=== PATIENT | female | born 1995 | race Caucasian/White ===

== ENCOUNTER 2017-02-02 16:05 | Emergency (ER) | payer MEDICAID ==
[~2017-02-02 16:05] MED LIST: ANTIVERT/2525 MG PO; BENTYL10 MG PO; DOXYCYCLINE HY100 M3 PO; DOXYCYCLINE100 M2 PO; FLONASE 0.05% 121 EA NAS; GYNE-LOTRIMIN 31 KIT VG; KENALOG0.1% TP; METHERGINE0.2 MG PO; MOTRIN 800 MG E4 TAB PO; MOTRIN800 MG PO; Meclizine25 MG PO; NKHM; PEN-VEE K500 MG PO; PENICILLIN VK500 MG PO; PERCOCET 325 MG1 TA7 PO; PHENERGAN25 M1 PO; PRENATAL1 TA2 PO; TOBREX 5 ML5 M1 OPH
[2017-02-02 16:47] LABS: BILIRUBIN 1+ (NEGATIVE); BLOOD TRACE-LYSED (NEGATIVE); CLARITY CLOUDY (CLEAR); COLOR YELLOW (YELLOW); GLUCOSE NEGATIVE (NEGATIVE); KETONE TRACE (NEGATIVE); LEUKO ESTERASE TRACE (NEGATIVE); NITRITE NEGATIVE (NEGATIVE); PH 6.5 (5.0-9.0); PROTEIN TRACE (NEGATIVE); SPECIFIC GRAVITY 1.025 (1.005-1.030)
[2017-02-02 16:59] LABS: BASO # 0.1 10*3/uL (0.0-0.1); BASO % 0.6 % (0.0-1.0); EOS # 0.1 10*3/uL (0.0-0.4); HEMATOCRIT 39.7 % (37.0-47.0); HEMOGLOBIN 13.6 g/dl (12.0-16.0); LYMPH # 2.1 10*3/uL (1.3-4.4); LYMPH % 23.7 % (27.0-41.0); MEAN CORPUSCULAR HGB 30.2 pg (27.0-31.0); MEAN CORPUSCULAR HGB CONC 34.3 g/dl (33.0-37.0); MEAN PLATELET VOLUME 9.9 fl (9.6-12.3); MONO # 0.8 10*3/uL (0.1-1.0); MONO % 8.5 % (3.0-9.0); NEUT # 5.9 10*3/uL (2.3-7.9); NEUT % 65.9 % (47.0-73.0); PLATELET COUNT AUTOMATED 298 10*3/uL (130-400); RED BLOOD COUNT 4.51 10*6/uL (4.10-5.10); RED CELL DISTRI WIDTH 12.1 % (0-14.5)
[2017-02-02 17:04] LABS: BACTERIA 1+; EPITHELIAL CELLS 16-20; MUCOUS 1+
[2017-02-02 17:05] LABS: URINE REFLEX COMMENT YES (NO)
[2017-02-02 17:14] LABS: ALBUMIN 4.3 gm/dl (3.1-4.5); ALKALINE PHOSPHATASE 83 U/L (45-117); BILIRUBIN, TOTAL 0.5 mg/dl (0.2-1.0); BUN 12 mg/dl (7-24); CARBON DIOXIDE 25 mmol/L (21-32); CHLORIDE 107 mmol/L (98-107); EST GLOM FILT AFRICAN AMERICAN > 60 ml/min; GLUCOSE 107 mg/dL (65-99); POTASSIUM 3.9 mmol/L (3.5-5.1); SGOT/AST 14 IU/L (3-35); SGPT/ALT 18 U/L (12-78); SODIUM 143 mmol/L (136-145); TOTAL PROTEIN 7.7 gm/dL (6.4-8.2)
[2017-02-02] MEDS ORDERED: AMINOPHYLLIN200 MG PO (17:29)
== END 2017-02-02 17:32 | disposition home or self-care (01) ==
LOC: ED 16:05
PROVIDERS: Physician Assistant
DX: N30.01 Acute cystitis with hematuria (principal); Z88.6 Allergy status to analgesic agent; Z88.8 Allergy status to other drugs, medicaments and biological substances

== ENCOUNTER 2017-02-22 12:47 | Emergency (ER) | payer MEDICAID ==
[~2017-02-22] VITALS: Wt 39.5 kg
[~2017-02-22 12:47] MED LIST changes: +AMINOPHYLLIN200 MG PO
[2017-02-22 13:09] LABS: BILIRUBIN NEGATIVE (NEGATIVE); BLOOD NEGATIVE (NEGATIVE); CLARITY SL CLOUDY (CLEAR); COLOR YELLOW (YELLOW); GLUCOSE NEGATIVE (NEGATIVE); KETONE NEGATIVE (NEGATIVE); LEUKO ESTERASE NEGATIVE (NEGATIVE); NITRITE NEGATIVE (NEGATIVE); PH 5.5 (5.0-9.0); PROTEIN NEGATIVE (NEGATIVE); SPECIFIC GRAVITY >= 1.030 (1.005-1.030)
[2017-02-22 13:19] LABS: BACTERIA TRACE; EPITHELIAL CELLS 31-40; MUCOUS TRACE; URINE REFLEX COMMENT NO (NO); WBC 0-2 wbc/hpf (0-5)
[2017-02-22] MEDS ORDERED: PYRIDIUM200 M1 PO (14:01)
== END 2017-02-22 14:10 | disposition home or self-care (01) ==
LOC: ED 12:47
PROVIDERS: Nurse Practitioner Family
DX: R30.0 Dysuria (principal); Z88.8 Allergy status to other drugs, medicaments and biological substances

== ENCOUNTER 2017-06-17 02:17 | Emergency (ER) | payer OTHER ==
[~2017-06-17] VITALS: Ht 144.7 cm; Wt 40.8 kg
[~2017-06-17 02:17] MED LIST changes: +PYRIDIUM200 M1 PO
[2017-06-17 02:52] LABS: BILIRUBIN NEGATIVE (NEGATIVE); BLOOD NEGATIVE (NEGATIVE); CLARITY CLEAR (CLEAR); COLOR YELLOW (YELLOW); GLUCOSE NEGATIVE (NEGATIVE); KETONE TRACE (NEGATIVE); LEUKO ESTERASE NEGATIVE (NEGATIVE); NITRITE NEGATIVE (NEGATIVE); PROTEIN NEGATIVE (NEGATIVE)
[2017-06-17 02:57] LABS: EPITHELIAL CELLS 25-30
[2017-06-17 02:58] LABS: BACTERIA TRACE; URINE REFLEX COMMENT NO (NO); WBC 0-2 wbc/hpf (0-5)
[2017-06-17 03:26] LABS: BASO % 0.3 % (0.0-1.0); EOS # 0.1 10*3/uL (0.0-0.4); EOS % 1.5 % (1.0-4.0); HEMATOCRIT 35.4 % (37.0-47.0); HEMOGLOBIN 12.2 g/dl (12.0-16.0); LYMPH % 26.6 % (27.0-41.0); MEAN CELL VOLUME 88.1 fl (81.0-99.0); MEAN CORPUSCULAR HGB 30.3 pg (27.0-31.0); MEAN CORPUSCULAR HGB CONC 34.5 g/dl (33.0-37.0); MEAN PLATELET VOLUME 9.9 fl (9.6-12.3); MONO # 0.7 10*3/uL (0.1-1.0); NEUT # 4.6 10*3/uL (2.3-7.9); NEUT % 62.2 % (47.0-73.0); PLATELET COUNT AUTOMATED 210 10*3/uL (130-400); RED BLOOD COUNT 4.02 10*6/uL (4.10-5.10); RED CELL DISTRI WIDTH 12.3 % (0-14.5); WHITE BLOOD COUNT 7.3 10*3/uL (4.8-10.8)
[2017-06-17 03:38] LABS: BUN 7 mg/dl (7-24); CARBON DIOXIDE 24 mmol/L (21-32); CHLORIDE 107 mmol/L (98-107); EST GLOM FILT AFRICAN AMERICAN > 60 ml/min; GLUCOSE 100 mg/dL (65-99); POTASSIUM 3.3 mmol/L (3.5-5.1); SODIUM 140 mmol/L (136-145)
== END 2017-06-17 04:40 | disposition home or self-care (01) ==
LOC: ED 02:17
PROVIDERS: Emergency Medicine
DX: E86.0 Dehydration (principal); R42 Dizziness and giddiness; R53.1 Weakness; F17.200 Nicotine dependence, unspecified, uncomplicated; Z88.8 Allergy status to other drugs, medicaments and biological substances

== ENCOUNTER 2017-07-27 09:36 | Emergency (ER) | payer OTHER ==
[~2017-07-27] VITALS: Wt 42.2 kg
[2017-07-27] MEDS ORDERED: PRENA1 CHEW TA1.4 MG PO (09:41)
[2017-07-27] MEDS ORDERED: AVPAK AZITHROM250 MG PO (11:00)
== END 2017-07-27 11:06 | disposition home or self-care (01) ==
LOC: ED 09:36
DX: O99.511 Diseases of the respiratory system complicating pregnancy, first trimester (principal); J06.9 Acute upper respiratory infection, unspecified; Z88.1 Allergy status to other antibiotic agents; Z79.899 Other long term (current) drug therapy; Z3A.11 11 weeks gestation of pregnancy

== ENCOUNTER 2017-08-23 15:02 | Emergency (ER) | payer OTHER ==
[~2017-08-23] VITALS: Ht 144.7 cm; Wt 43.1 kg
[~2017-08-23 15:02] MED LIST changes: +AVPAK AZITHROM250 MG PO; +PRENA1 CHEW TA1.4 MG PO
[2017-08-23 15:39] LABS: BILIRUBIN NEGATIVE (NEGATIVE); BLOOD NEGATIVE (NEGATIVE); CLARITY SL CLOUDY (CLEAR); COLOR YELLOW (YELLOW); GLUCOSE NEGATIVE (NEGATIVE); KETONE NEGATIVE (NEGATIVE); LEUKO ESTERASE NEGATIVE (NEGATIVE); NITRITE NEGATIVE (NEGATIVE); PH 8.5 (5.0-9.0); SPECIFIC GRAVITY 1.015 (1.005-1.030); UROBILINOGEN 0.2 E.U./dl (0.2-1.0)
[2017-08-23 15:48] LABS: BACTERIA 2+; EPITHELIAL CELLS 20-25
== END 2017-08-23 16:47 | disposition home or self-care (01) ==
LOC: ED 15:02
PROVIDERS: Nurse Practitioner Family
DX: O26.892 Other specified pregnancy related conditions, second trimester (principal); R10.9 Unspecified abdominal pain; Z88.8 Allergy status to other drugs, medicaments and biological substances; Z79.899 Other long term (current) drug therapy; Z3A.14 14 weeks gestation of pregnancy

== ENCOUNTER 2017-09-07 20:58 | Emergency (ER) | payer OTHER ==
[~2017-09-07] VITALS: Ht 144.7 cm; Wt 44.0 kg
--- NOTE | ~2017-09-07 | EKG ---
[place], [place] ELECTROCARDIOGRAM REPORT NAME: LOTTIE ELIAS UNIT #: [id number] ROOM: DOCTOR: TIFFANIE HERNANDEZ MD BIRTHDATE: [birth year] DOS: 09/07/2017 TIME: 2148 hours. INTERPRETATION: Normal sinus rhythm at 90 beats per minute. Borderline measurements for first-degree heart block. No previous tracing is available for comparison. TIFFANIE HERNANDEZ MD CM:EKGRPT:ELECTROCARDIOGRAM REPORT [id number] TIFFANIE HERNANDEZ MD
[2017-09-07 21:34] LABS: BASO % 0.2 % (0.0-1.0); EOS # 0.1 10*3/uL (0.0-0.4); HEMATOCRIT 35.1 % (37.0-47.0); HEMOGLOBIN 12.5 g/dl (12.0-16.0); LYMPH # 2.2 10*3/uL (1.3-4.4); MEAN CELL VOLUME 86.9 fl (81.0-99.0); MEAN CORPUSCULAR HGB 30.9 pg (27.0-31.0); MEAN CORPUSCULAR HGB CONC 35.6 g/dl (33.0-37.0); MONO % 7.7 % (3.0-9.0); NEUT # 9.3 10*3/uL (2.3-7.9); NEUT % 73.5 % (47.0-73.0); PLATELET COUNT AUTOMATED 254 10*3/uL (130-400); RED BLOOD COUNT 4.04 10*6/uL (4.10-5.10); RED CELL DISTRI WIDTH 12.8 % (0-14.5); WHITE BLOOD COUNT 12.7 10*3/uL (4.8-10.8)
[2017-09-07 21:36] LABS: BILIRUBIN NEGATIVE (NEGATIVE); BLOOD NEGATIVE (NEGATIVE); CLARITY CLEAR (CLEAR); COLOR YELLOW (YELLOW); GLUCOSE NEGATIVE (NEGATIVE); KETONE NEGATIVE (NEGATIVE); LEUKO ESTERASE NEGATIVE (NEGATIVE); NITRITE NEGATIVE (NEGATIVE); SPECIFIC GRAVITY <= 1.005 (1.005-1.030); UROBILINOGEN 0.2 E.U./dl (0.2-1.0)
[2017-09-07 21:45] LABS: BACTERIA TRACE
[2017-09-07 21:46] LABS: WBC 0-2 wbc/hpf (0-5)
[2017-09-07 22:22] LABS: ALBUMIN 3.3 gm/dl (3.1-4.5); ALKALINE PHOSPHATASE 52 U/L (45-117); BUN 8 mg/dl (7-24); CHLORIDE 104 mmol/L (98-107); POTASSIUM 3.8 mmol/L (3.5-5.1); SGOT/AST 15 IU/L (3-35); SGPT/ALT 15 U/L (12-78); SODIUM 138 mmol/L (136-145); TOTAL PROTEIN 7.5 gm/dL (6.4-8.2)
== END 2017-09-07 23:23 | disposition home or self-care (01) ==
LOC: ED 20:58
PROVIDERS: Student in an Organized Health Care Education/Training Program
DX: O26.892 Other specified pregnancy related conditions, second trimester (principal); Z3A.17 17 weeks gestation of pregnancy; R42 Dizziness and giddiness

== ENCOUNTER 2018-02-06 12:57 | Emergency (ER) | payer OTHER ==
[~2018-02-06] VITALS: Ht 144.7 cm; Wt 43.5 kg
[2018-02-06 13:28] LABS: BILIRUBIN NEGATIVE (NEGATIVE); BLOOD 3+ (NEGATIVE); CLARITY SL CLOUDY (CLEAR); COLOR YELLOW (YELLOW); GLUCOSE NEGATIVE (NEGATIVE); KETONE TRACE (NEGATIVE); LEUKO ESTERASE 1+ (NEGATIVE); NITRITE NEGATIVE (NEGATIVE); PH 6.5 (5.0-9.0); UROBILINOGEN 0.2 E.U./dl (0.2-1.0)
[2018-02-06 13:36] LABS: MUCOUS 1+; RBC TNTC rbc/hpf (0-2)
[2018-02-06 13:45] LABS: BASO % 0.5 % (0.0-1.0); EOS # 0.1 10*3/uL (0.0-0.4); EOS % 1.1 % (1.0-4.0); HEMATOCRIT 38.7 % (37.0-47.0); HEMOGLOBIN 12.8 g/dl (12.0-16.0); LYMPH # 1.7 10*3/uL (1.3-4.4); LYMPH % 21.5 % (27.0-41.0); MEAN CELL VOLUME 87.2 fl (81.0-99.0); MEAN CORPUSCULAR HGB 28.8 pg (27.0-31.0); MEAN CORPUSCULAR HGB CONC 33.1 g/dl (33.0-37.0); MEAN PLATELET VOLUME 9.3 fl (9.6-12.3); MONO # 0.7 10*3/uL (0.1-1.0); MONO % 8.6 % (3.0-9.0); NEUT # 5.4 10*3/uL (2.3-7.9); PLATELET COUNT AUTOMATED 370 10*3/uL (130-400); RED BLOOD COUNT 4.44 10*6/uL (4.10-5.10); RED CELL DISTRI WIDTH 14.3 % (0-14.5); WHITE BLOOD COUNT 7.9 10*3/uL (4.8-10.8)
[2018-02-06 13:59] LABS: ALBUMIN 3.3 gm/dl (3.1-4.5); ALKALINE PHOSPHATASE 102 U/L (45-117); BUN 9 mg/dl (7-24); CHLORIDE 106 mmol/L (98-107); CREATININE 0.63 mg/dL (0.55-1.02); POTASSIUM 3.7 mmol/L (3.5-5.1); SGOT/AST 15 IU/L (3-35); SGPT/ALT 13 U/L (12-78); SODIUM 141 mmol/L (136-145); TOTAL PROTEIN 7.3 gm/dL (6.4-8.2)
[2018-02-06] MEDS ORDERED: CEPHALEXIN500 M1 PO (14:01)
== END 2018-02-06 14:25 | disposition home or self-care (01) ==
LOC: ED 12:57
PROVIDERS: Nurse Practitioner Family
DX: N39.0 Urinary tract infection, site not specified (principal); Z79.899 Other long term (current) drug therapy; Z88.1 Allergy status to other antibiotic agents

== ENCOUNTER 2018-02-17 14:55 | Emergency (ER) | payer OTHER ==
[~2018-02-17 14:55] MED LIST changes: +CEPHALEXIN500 M1 PO
[2018-02-17 15:37] LABS: BASO % 0.5 % (0.0-1.0); EOS # 0.1 10*3/uL (0.0-0.4); EOS % 1.1 % (1.0-4.0); HEMATOCRIT 38.3 % (37.0-47.0); HEMOGLOBIN 12.6 g/dl (12.0-16.0); LYMPH # 1.7 10*3/uL (1.3-4.4); LYMPH % 25.4 % (27.0-41.0); MEAN CELL VOLUME 87.6 fl (81.0-99.0); MEAN CORPUSCULAR HGB 28.8 pg (27.0-31.0); MEAN CORPUSCULAR HGB CONC 32.9 g/dl (33.0-37.0); MEAN PLATELET VOLUME 10.2 fl (9.6-12.3); MONO # 0.4 10*3/uL (0.1-1.0); MONO % 6.8 % (3.0-9.0); NEUT # 4.3 10*3/uL (2.3-7.9); NEUT % 65.9 % (47.0-73.0); PLATELET COUNT AUTOMATED 249 10*3/uL (130-400); RED BLOOD COUNT 4.37 10*6/uL (4.10-5.10); RED CELL DISTRI WIDTH 13.9 % (0-14.5); WHITE BLOOD COUNT 6.5 10*3/uL (4.8-10.8)
[2018-02-17 15:51] LABS: INTERNATIONAL NORM RATIO 0.9 (2.0-3.5)
[2018-02-17 15:54] LABS: ALBUMIN 3.6 gm/dl (3.1-4.5); ALKALINE PHOSPHATASE 70 U/L (45-117); BUN 14 mg/dl (7-24); CHLORIDE 109 mmol/L (98-107); CREATININE 0.54 mg/dL (0.55-1.02); POTASSIUM 3.6 mmol/L (3.5-5.1); SGOT/AST 20 IU/L (3-35); SGPT/ALT 20 U/L (12-78); SODIUM 143 mmol/L (136-145)
[2018-02-17] MEDS ORDERED: PRENATAL ONE D1 EACH PO (16:39)
== END 2018-02-17 16:43 | disposition home or self-care (01) ==
LOC: ED 14:55
PROVIDERS: Physician Assistant
DX: R42 Dizziness and giddiness (principal); Z79.899 Other long term (current) drug therapy; Z88.1 Allergy status to other antibiotic agents

== ENCOUNTER 2018-03-04 16:15 | Emergency (ER) | payer OTHER ==
[~2018-03-04] VITALS: Wt 45.4 kg
[~2018-03-04 16:15] MED LIST changes: +PRENATAL ONE D1 EACH PO
[2018-03-04] MEDS ORDERED: AMOXICILLIN500 M2 PO (16:23)
[2018-03-04] MEDS ORDERED: ZOFRAN4 MG PO (16:23)
== END 2018-03-04 16:35 | disposition home or self-care (01) ==
LOC: ED 16:15
DX: K02.9 Dental caries, unspecified (principal); F17.200 Nicotine dependence, unspecified, uncomplicated; Z88.8 Allergy status to other drugs, medicaments and biological substances; Z79.899 Other long term (current) drug therapy

== ENCOUNTER 2018-04-15 05:26 | Emergency (ER) | payer OTHER ==
[~2018-04-15] VITALS: Ht 144.7 cm; Wt 43.1 kg
[~2018-04-15 05:26] MED LIST changes: +AMOXICILLIN500 M2 PO; +ZOFRAN4 MG PO
== END 2018-04-15 06:51 | disposition home or self-care (01) ==
LOC: ED 05:26
DX: J02.9 Acute pharyngitis, unspecified (principal); F41.9 Anxiety disorder, unspecified; Z88.1 Allergy status to other antibiotic agents; Z79.899 Other long term (current) drug therapy

== ENCOUNTER 2018-06-08 07:16 | Emergency (ER) | payer OTHER ==
[~2018-06-08] VITALS: Ht 144.7 cm; Wt 44.5 kg
[2018-06-08] MEDS ORDERED: AMOXICILLIN500 M2 PO (07:31)
[2018-06-08] MEDS ORDERED: Motrin,Rufen800 MG PO (07:31)
== END 2018-06-08 07:46 | disposition home or self-care (01) ==
LOC: ED 07:16
DX: K04.7 Periapical abscess without sinus (principal); Z79.899 Other long term (current) drug therapy; Z88.1 Allergy status to other antibiotic agents; Z88.6 Allergy status to analgesic agent; Z88.8 Allergy status to other drugs, medicaments and biological substances

== ENCOUNTER 2018-06-20 05:14 | Emergency (ER) | payer OTHER ==
[~2018-06-20] VITALS: Ht 144.7 cm; Wt 42.2 kg
--- NOTE | ~2018-06-20 | EKG ---
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
[~2018-06-20 05:14] MED LIST changes: +Motrin,Rufen800 MG PO
[2018-06-20 05:48] LABS: BASO % 0.4 % (0.0-1.0); EOS # 0.2 10*3/uL (0.0-0.4); EOS % 2.3 % (1.0-4.0); HEMATOCRIT 37.4 % (37.0-47.0); HEMOGLOBIN 12.6 g/dl (12.0-16.0); LYMPH # 2.4 10*3/uL (1.3-4.4); MEAN CELL VOLUME 87.6 fl (81.0-99.0); MEAN CORPUSCULAR HGB 29.5 pg (27.0-31.0); MEAN CORPUSCULAR HGB CONC 33.7 g/dl (33.0-37.0); MEAN PLATELET VOLUME 9.7 fl (9.6-12.3); MONO # 0.7 10*3/uL (0.1-1.0); MONO % 9.7 % (3.0-9.0); NEUT # 3.9 10*3/uL (2.3-7.9); NEUT % 53.6 % (47.0-73.0); PLATELET COUNT AUTOMATED 275 10*3/uL (130-400); RED BLOOD COUNT 4.27 10*6/uL (4.10-5.10); RED CELL DISTRI WIDTH 12.2 % (0-14.5); WHITE BLOOD COUNT 7.3 10*3/uL (4.8-10.8)
[2018-06-20 05:51] LABS: ALBUMIN 4.2 gm/dl (3.1-4.5); ALKALINE PHOSPHATASE 80 U/L (45-117); BUN 16 mg/dl (7-24); CHLORIDE 106 mmol/L (98-107); POTASSIUM 3.6 mmol/L (3.5-5.1); SGOT/AST 15 IU/L (3-35); SGPT/ALT 18 U/L (12-78); SODIUM 141 mmol/L (136-145); TOTAL PROTEIN 7.7 gm/dL (6.4-8.2)
[2018-06-20 05:55] LABS: BETA-HCG, QUANT < 1.0 mIU/mL (1-3); TROPONIN I < 0.015 ng/ml (<0.045)
== END 2018-06-20 06:36 | disposition home or self-care (01) ==
LOC: ED 05:14
PROVIDERS: Student in an Organized Health Care Education/Training Program
DX: F41.9 Anxiety disorder, unspecified (principal); R00.2 Palpitations; R20.0 Anesthesia of skin; Z88.8 Allergy status to other drugs, medicaments and biological substances; Z79.899 Other long term (current) drug therapy

== ENCOUNTER 2018-07-24 20:21 | Emergency (ER) | payer OTHER ==
[~2018-07-24] VITALS: Ht 144.7 cm; Wt 43.1 kg
[2018-07-24 20:55] LABS: BILIRUBIN NEGATIVE (NEGATIVE); BLOOD NEGATIVE (NEGATIVE); CLARITY CLEAR (CLEAR); COLOR YELLOW (YELLOW); GLUCOSE NEGATIVE (NEGATIVE); KETONE NEGATIVE (NEGATIVE); LEUKO ESTERASE NEGATIVE (NEGATIVE); NITRITE NEGATIVE (NEGATIVE); UROBILINOGEN 0.2 E.U./dl (0.2-1.0)
[2018-07-24 21:06] LABS: BACTERIA TRACE; EPITHELIAL CELLS 35-40; RBC 0-2 rbc/hpf (0-2); WBC 0-2 wbc/hpf (0-5)
== END 2018-07-24 21:45 | disposition home or self-care (01) ==
LOC: ED 20:21
PROVIDERS: Emergency Medicine
DX: B34.9 Viral infection, unspecified (principal); R10.30 Lower abdominal pain, unspecified; M54.5 Low back pain; Z88.8 Allergy status to other drugs, medicaments and biological substances

== ENCOUNTER 2018-08-06 05:10 | Emergency (ER) | payer OTHER ==
[~2018-08-06] VITALS: Ht 144.7 cm; Wt 43.1 kg
[2018-08-06] MEDS ORDERED: PENICILLIN-VK500 MG PO (05:36)
[2018-08-06] MEDS ORDERED: Motrin,Rufen800 MG PO (06:00)
== END 2018-08-06 05:47 | disposition home or self-care (01) ==
LOC: ED 05:10
DX: K02.9 Dental caries, unspecified (principal); K04.01 Reversible pulpitis; Z88.8 Allergy status to other drugs, medicaments and biological substances; Z79.899 Other long term (current) drug therapy

== ENCOUNTER 2018-09-19 04:05 | Emergency (ER) | payer OTHER ==
[~2018-09-19] VITALS: Ht 144.7 cm; Wt 42.2 kg
[~2018-09-19 04:05] MED LIST changes: +PENICILLIN-VK500 MG PO
[2018-09-19] MEDS ORDERED: AMOXICILLIN500 M2 PO (04:41)
[2018-09-19] MEDS ORDERED: Motrin,Rufen800 MG PO (04:41)
== END 2018-09-19 05:27 | disposition home or self-care (01) ==
LOC: ED 04:05
DX: H66.93 Otitis media, unspecified, bilateral (principal); J01.90 Acute sinusitis, unspecified; Z88.8 Allergy status to other drugs, medicaments and biological substances

== ENCOUNTER 2018-10-24 02:31 | Emergency (ER) | payer SELFPAY ==
[~2018-10-24] VITALS: Ht 144.7 cm; Wt 42.2 kg
[2018-10-24] MEDS ORDERED: GYNE-LOTRIMIN-745 GM V (03:38)
[2018-10-24] MEDS ORDERED: KEFLEX500 M1 PO (03:38)
[2018-10-28 03:04] LABS: GONOCOCCUS BY NAA Negative (Negative)
== END 2018-10-24 04:12 | disposition home or self-care (01) ==
LOC: ED 02:31
PROVIDERS: Emergency Medicine Emergency Medical Services
DX: J02.9 Acute pharyngitis, unspecified (principal); H61.21 Impacted cerumen, right ear; N76.0 Acute vaginitis; R09.81 Nasal congestion; H92.02 Otalgia, left ear; H93.13 Tinnitus, bilateral; F41.9 Anxiety disorder, unspecified; Z88.8 Allergy status to other drugs, medicaments and biological substances; Z87.440 Personal history of urinary (tract) infections

== ENCOUNTER 2018-11-10 10:51 | Emergency (ER) | payer MEDICAID ==
[~2018-11-10] VITALS: Ht 144.7 cm; Wt 42.6 kg
[~2018-11-10 10:51] MED LIST changes: +GYNE-LOTRIMIN-745 GM V; +KEFLEX500 M1 PO
[2018-11-10 11:26] LABS: BILIRUBIN NEGATIVE (NEGATIVE); BLOOD TRACE-INTACT (NEGATIVE); CLARITY SL CLOUDY (CLEAR); COLOR YELLOW (YELLOW); GLUCOSE NEGATIVE (NEGATIVE); KETONE NEGATIVE (NEGATIVE); LEUKO ESTERASE 1+ (NEGATIVE); NITRITE NEGATIVE (NEGATIVE); SPECIFIC GRAVITY >= 1.030 (1.005-1.030); UROBILINOGEN 0.2 E.U./dl (0.2-1.0)
[2018-11-10 11:37] LABS: WBC 21-30 wbc/hpf (0-5)
[2018-11-10 11:38] LABS: BACTERIA 2+
[2018-11-10] MEDS ORDERED: FLONASE ALLERG9.9 ML NAS (12:03)
[2018-11-10] MEDS ORDERED: ZYRTEC10 MG PO (12:03)
[2018-11-10] MEDS ORDERED: CEFUROXIME AXE500 MG PO (12:03)
== END 2018-11-10 11:44 | disposition home or self-care (01) ==
LOC: ED 10:51
PROVIDERS: Nurse Practitioner Family
DX: N39.0 Urinary tract infection, site not specified (principal); J01.90 Acute sinusitis, unspecified; Z88.8 Allergy status to other drugs, medicaments and biological substances

== ENCOUNTER 2018-11-12 08:25 | Emergency (ER) | payer OTHER ==
[~2018-11-12] VITALS: Ht 144.7 cm; Wt 42.2 kg
[~2018-11-12 08:25] MED LIST changes: +CEFUROXIME AXE500 MG PO; +FLONASE ALLERG9.9 ML NAS; +ZYRTEC10 MG PO
== END 2018-11-12 11:33 | disposition home or self-care (01) ==
LOC: ED 08:25
DX: J32.9 Chronic sinusitis, unspecified (principal); N76.0 Acute vaginitis; Z88.8 Allergy status to other drugs, medicaments and biological substances; Z79.2 Long term (current) use of antibiotics; Z79.899 Other long term (current) drug therapy

== ENCOUNTER 2018-11-25 17:56 | Emergency (ER) | payer OTHER ==
[~2018-11-25] VITALS: Ht 144.7 cm; Wt 43.5 kg
--- NOTE | ~2018-11-25 | EKG ---
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
[~2018-11-25 17:56] MED LIST changes: -AUGMENTIN 875875 MG PO; -CLEOCIN HCL300 MG PO; -IBU800 M1 PO
[2018-11-25 18:17] LABS: BASO % 0.3 % (0.0-1.0); EOS # 0.1 10*3/uL (0.0-0.4); EOS % 0.7 % (1.0-4.0); HEMATOCRIT 40.8 % (37.0-47.0); HEMOGLOBIN 14.2 g/dl (12.0-16.0); LYMPH % 18.8 % (27.0-41.0); MEAN CELL VOLUME 87.7 fl (81.0-99.0); MEAN CORPUSCULAR HGB 30.5 pg (27.0-31.0); MEAN CORPUSCULAR HGB CONC 34.8 g/dl (33.0-37.0); MONO # 0.8 10*3/uL (0.1-1.0); MONO % 7.3 % (3.0-9.0); NEUT # 7.8 10*3/uL (2.3-7.9); NEUT % 72.5 % (47.0-73.0); PLATELET COUNT AUTOMATED 279 10*3/uL (130-400); RED BLOOD COUNT 4.65 10*6/uL (4.10-5.10); RED CELL DISTRI WIDTH 12.2 % (0-14.5); WHITE BLOOD COUNT 10.7 10*3/uL (4.8-10.8)
[2018-11-25 18:27] LABS: INTERNATIONAL NORM RATIO 0.9 (2.0-3.5)
[2018-11-25 18:34] LABS: ALBUMIN 4.4 gm/dl (3.1-4.5); ALKALINE PHOSPHATASE 59 U/L (45-117); BUN 11 mg/dl (7-24); CHLORIDE 107 mmol/L (98-107); CREATININE 0.65 mg/dL (0.55-1.02); LIPASE 161 U/L (73-393); POTASSIUM 3.8 mmol/L (3.5-5.1); SGOT/AST 13 IU/L (3-35); SGPT/ALT 19 U/L (12-78); SODIUM 139 mmol/L (136-145); TOTAL PROTEIN 7.9 gm/dL (6.4-8.2)
[2018-11-25 18:43] LABS: TROPONIN I < 0.015 ng/ml (<0.045)
== END 2018-11-25 20:00 | disposition home or self-care (01) ==
LOC: ED 17:56
PROVIDERS: Nurse Practitioner Family
DX: R94.31 Abnormal electrocardiogram [ECG] [EKG] (principal); Z88.8 Allergy status to other drugs, medicaments and biological substances

== ENCOUNTER → 2018-11-25 | Outpatient (CLI) | payer OTHER ==
[~2018-11-25] MED LIST changes: +AUGMENTIN 875875 MG PO; +CLEOCIN HCL300 MG PO; +IBU800 M1 PO
--- NOTE | ~2018-11-25 | HM ---
[place], [place] HOLTER MONITOR REPORT NAME: LOTTIE LYON UNIT #: [id number] ROOM: DOCTOR: ROXANA DIXON MD BIRTHDATE: [birth year] DOS: 11/25/2018 INDICATION FOR MONITORING: Palpitations. DURATION OF MONITORIN hours. IMPRESSION: Baseline rhythm, normal sinus rhythm. Average heart rate was 91 beats per minute. Minimum heart rate was 53 beats per minute, occurring at 11:00 a.m. The maximum heart rate was 167 beats per minute, occurring at 4:33 p.m. No ventricular ectopy including VT/VF was noted. There were 28 supraventricular ectopic beats. Atrial fibrillation burden was 0%. No significant pauses were noted. No diary was submitted with this report. Roxana Dixon MD CM:HOLTER:HOLTER MONITOR REPORT [id number] ROXANA DIXON MD
--- NOTE | ~2018-11-25 | EKG ---
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
== END | disposition home or self-care (01) ==
LOC: CARD 10:30
DX: I21.9 Acute myocardial infarction, unspecified (principal); I51.7 Cardiomegaly

== ENCOUNTER 2018-12-01 00:02 | Emergency (ER) | payer OTHER ==
[~2018-12-01] VITALS: Ht 144.7 cm; Wt 43.1 kg
[2018-12-01] MEDS ORDERED: IBU800 M1 PO (00:16)
[2018-12-01] MEDS ORDERED: PENICILLIN VK500 MG PO (00:16)
[2018-12-01] MEDS ORDERED: AUGMENTIN 875875 MG PO (00:56)
== END 2018-12-01 01:21 | disposition home or self-care (01) ==
LOC: ED 00:02
DX: K04.7 Periapical abscess without sinus (principal); K02.9 Dental caries, unspecified

== ENCOUNTER 2018-12-02 01:26 | Inpatient (IN) | payer OTHER ==
[~2018-12-02] VITALS: Ht 144.8 cm; Wt 43.1 kg
[2018-12-02] VITALS (7 sets, daily range): BP systolic 104–134; BP diastolic 59–96
--- NOTE | ~2018-12-02 | O ---
[place], [place] OPERATIVE NOTE NAME: LOTTIE LYON UNIT #: [id number] ROOM: [facility] DOCTOR: VANDA HARE DMD BIRTHDATE: [birth year] DOS: PREOPERATIVE DIAGNOSES: Facial cellulitis and anxiety. POSTOPERATIVE DIAGNOSES: Facial cellulitis and anxiety. ANESTHESIA: General anesthesia with endotracheal intubation. FLUIDS: Minimal. ESTIMATED BLOOD LOSS: Minimal. COMPLICATIONS: None. CONDITION: To PACU, stable. DESCRIPTION OF PROCEDURE: The patient was brought to the OR and placed in supine position. IV and EKG lines were placed. Endotracheal intubation and general anesthesia was administered. The patient was prepped and draped for oral procedures. Risks and benefits were explained to the patient prior to surgery. Clinical exam and x-rays taken determined nonrestorable tooth #14 with associated buccal space abscess and erosion into the maxillary sinus. PROCEDURES PERFORMED: Complete extraction tooth #14, radicular cyst removal. Incision and drainage in the buccal space. Gelfoam placed, sutured with 4-0 Vicryl. Lavaged x 2. Throat pack removed. The patient left the OR in good condition and went to the PACU. VANDA HARE DMD CM:OPRECORD:OPERATIVE NOTE [id number] VANDA HARE DMD 12/04/18 0854 interface
--- NOTE | ~2018-12-02 | CON ---
[place], [place] REPORT OF CONSULTATION NAME: LOTTIE LYON UNIT #: [id number] ROOM: 505 DOCTOR: VANDA HARE DMD BIRTHDATE: [birth year] DOS: 12/02/2018 HISTORY OF PRESENT ILLNESS: The patient is admitted for a left-sided facial swelling of 1 week duration. On exam, the patient has moderate left-sided mid facial swelling. Denies any dysphagia or dyspnea. Intraoral exam, the patient has tenderness on opening and slightly minimized maximum opening. Teeth in moderate oral condition, multiple teeth carious to the gumline. Tooth #14 carious to the gumline with associated buccal space swelling. Minimal purulence noted. Tenderness from tooth #11 extending distally to tooth #16. Discussed treatment options with the patient including general anesthesia with extraction of offending teeth and incision and drainage or continued antibiotic therapy and extraction of offending teeth once discharged. The patient is to consider her options and make a decision. VANDA HARE DMD CM:CONSTR:REPORT OF CONSULTATION 1234 12/03/18 0034 interface
[~2018-12-02 01:26] MED LIST changes: +AUGMENTIN 875875 MG PO; +IBU800 M1 PO
[2018-12-02 02:45] LABS: BASO % 0.3 % (0.0-1.0); BILIRUBIN NEGATIVE (NEGATIVE); BLOOD NEGATIVE (NEGATIVE); CLARITY CLEAR (CLEAR); COLOR YELLOW (YELLOW); EOS # 0.1 10*3/uL (0.0-0.4); EOS % 0.6 % (1.0-4.0); GLUCOSE NEGATIVE (NEGATIVE); HEMOGLOBIN 12.6 g/dl (12.0-16.0); KETONE 2+ (NEGATIVE); LEUKO ESTERASE NEGATIVE (NEGATIVE); LYMPH # 1.9 10*3/uL (1.3-4.4); LYMPH % 13.9 % (27.0-41.0); MEAN CELL VOLUME 88.7 fl (81.0-99.0); MEAN CORPUSCULAR HGB 30.2 pg (27.0-31.0); MEAN CORPUSCULAR HGB CONC 34.1 g/dl (33.0-37.0); MEAN PLATELET VOLUME 10.3 fl (9.6-12.3); MONO # 1.3 10*3/uL (0.1-1.0); MONO % 9.5 % (3.0-9.0); NEUT # 10.4 10*3/uL (2.3-7.9); NEUT % 75.3 % (47.0-73.0); NITRITE NEGATIVE (NEGATIVE); PLATELET COUNT AUTOMATED 296 10*3/uL (130-400); RED BLOOD COUNT 4.17 10*6/uL (4.10-5.10); RED CELL DISTRI WIDTH 12.2 % (0-14.5); UROBILINOGEN 0.2 E.U./dl (0.2-1.0); WHITE BLOOD COUNT 13.9 10*3/uL (4.8-10.8)
[2018-12-02 02:55] LABS: URINE AMPHETAMINES < 1000 (1000ng/ml); URINE BARBITURATES < 200 (200ng/ml); URINE BENZODIAZEPINES < 200 (200ng/ml); URINE CANNABINOIDS (THC) < 50 (50ng/ml); URINE COCAINE < 300 (300ng/ml); URINE METHADONE < 300 (300ng/ml); URINE OPIATES < 300 (300ng/ml)
[2018-12-02 02:56] LABS: URINE PHENCYCLIDINE < 25 (25ng/ml)
[2018-12-02 03:00] LABS: ALBUMIN 4.1 gm/dl (3.1-4.5); ALKALINE PHOSPHATASE 65 U/L (45-117); BUN 8 mg/dl (7-24); CHLORIDE 108 mmol/L (98-107); CREATININE 0.59 mg/dL (0.55-1.02); POTASSIUM 3.3 mmol/L (3.5-5.1); SGOT/AST 24 IU/L (3-35); SGPT/ALT 27 U/L (12-78); SODIUM 140 mmol/L (136-145); TOTAL PROTEIN 7.9 gm/dL (6.4-8.2)
[2018-12-02 03:02] LABS: WBC 0-2 wbc/hpf (0-5)
[2018-12-03] VITALS (9 sets, daily range): BP systolic 98–115; BP diastolic 52–77
[2018-12-03 06:27] LABS: BASO % 0.3 % (0.0-1.0); EOS # 0.1 10*3/uL (0.0-0.4); EOS % 1.2 % (1.0-4.0); HEMOGLOBIN 11.2 g/dl (12.0-16.0); LYMPH # 1.6 10*3/uL (1.3-4.4); LYMPH % 16.8 % (27.0-41.0); MEAN CELL VOLUME 90.7 fl (81.0-99.0); MEAN CORPUSCULAR HGB 30.8 pg (27.0-31.0); MEAN CORPUSCULAR HGB CONC 33.9 g/dl (33.0-37.0); MEAN PLATELET VOLUME 10.5 fl (9.6-12.3); NEUT # 6.9 10*3/uL (2.3-7.9); NEUT % 71.3 % (47.0-73.0); PLATELET COUNT AUTOMATED 246 10*3/uL (130-400); RED BLOOD COUNT 3.64 10*6/uL (4.10-5.10); RED CELL DISTRI WIDTH 12.2 % (0-14.5); WHITE BLOOD COUNT 9.7 10*3/uL (4.8-10.8)
[2018-12-03 06:40] LABS: BUN 6 mg/dl (7-24); CHLORIDE 111 mmol/L (98-107); CHOLESTEROL 83 mg/dL (<200); CREATININE 0.54 mg/dL (0.55-1.02); HDL CHOLESTEROL 45 mg/dl (40-60); LDL CHOLESTEROL 31 mg/dL (9-159); PHOSPHOROUS 3.6 mg/dL (2.5-4.9); POTASSIUM 3.6 mmol/L (3.5-5.1); SODIUM 143 mmol/L (136-145); TRIGLYCERIDES 36 mg/dl (<150); VLDL CHOLESTEROL 7 mg/dL (6-40)
[2018-12-03] MEDS ORDERED: CLEOCIN HCL300 MG PO (12:28)
== END 2018-12-03 17:05 | disposition home or self-care (01) | DRG 854 ==
LOC: ED 01:26 → 5E 06:25 → EDHOLD 06:25 → 5E 06:25 → EDHOLD 07:18 → 5E 08:04
PROVIDERS: Emergency Medicine; Student in an Organized Health Care Education/Training Program; ADMIT Internal Medicine
PROC: 0CDWXZ0 Extraction of Upper Tooth, Single, External Approach (ICD-10-PCS; principal; 2018-12-02)
PROC: 0C94XZZ Drainage of Buccal Mucosa, External Approach (ICD-10-PCS; 2018-12-02)
PROC: 0CB4XZZ Excision of Buccal Mucosa, External Approach (ICD-10-PCS; 2018-12-02)
DX: A41.9 Sepsis, unspecified organism (principal); L03.211 Cellulitis of face; L02.01 Cutaneous abscess of face; K04.7 Periapical abscess without sinus; F41.9 Anxiety disorder, unspecified; E87.6 Hypokalemia; Z88.1 Allergy status to other antibiotic agents; E87.8 Other disorders of electrolyte and fluid balance, not elsewhere classified

== ENCOUNTER 2019-05-15 15:46 | Emergency (ER) | payer OTHER ==
[~2019-05-15] VITALS: Ht 144.7 cm; Wt 44.5 kg
[~2019-05-15 15:46] MED LIST changes: +CLEOCIN HCL300 MG PO
[2019-05-15 16:31] LABS: BILIRUBIN NEGATIVE (NEGATIVE); BLOOD NEGATIVE (NEGATIVE); CLARITY SL CLOUDY (CLEAR); COLOR YELLOW (YELLOW); GLUCOSE NEGATIVE (NEGATIVE); KETONE NEGATIVE (NEGATIVE); LEUKO ESTERASE NEGATIVE (NEGATIVE); NITRITE NEGATIVE (NEGATIVE); SPECIFIC GRAVITY 1.025 (1.005-1.030)
[2019-05-15 16:39] LABS: BACTERIA 1+; EPITHELIAL CELLS 21-30; MUCOUS 2+
[2019-05-15] MEDS ORDERED: CEPHALEXIN500 M1 PO (16:54)
== END 2019-05-15 17:03 | disposition home or self-care (01) ==
LOC: ED 15:46
PROVIDERS: Nurse Practitioner Family
DX: O26.891 Other specified pregnancy related conditions, first trimester (principal); R30.0 Dysuria; R30.9 Painful micturition, unspecified; Z3A.01 Less than 8 weeks gestation of pregnancy; Z88.8 Allergy status to other drugs, medicaments and biological substances; Z87.440 Personal history of urinary (tract) infections

== ENCOUNTER 2019-08-06 10:06 | Emergency (ER) | payer OTHER ==
[~2019-08-06] VITALS: Ht 144.7 cm; Wt 47.6 kg
[2019-08-06 11:02] LABS: BILIRUBIN NEGATIVE (NEGATIVE); BLOOD TRACE-INTACT (NEGATIVE); CLARITY SL CLOUDY (CLEAR); COLOR YELLOW (YELLOW); GLUCOSE NEGATIVE (NEGATIVE); KETONE NEGATIVE (NEGATIVE); LEUKO ESTERASE NEGATIVE (NEGATIVE); NITRITE NEGATIVE (NEGATIVE); UROBILINOGEN 0.2 E.U./dl (0.2-1.0)
[2019-08-06 11:15] LABS: MUCOUS TRACE; RBC 0-2 rbc/hpf (0-2)
== END 2019-08-06 11:41 | disposition home or self-care (01) ==
LOC: ED 10:06
PROVIDERS: Nurse Practitioner Family
DX: O46.92 Antepartum hemorrhage, unspecified, second trimester (principal); Z3A.17 17 weeks gestation of pregnancy; Z88.8 Allergy status to other drugs, medicaments and biological substances

== ENCOUNTER 2019-08-08 01:02 | Emergency (ER) | payer OTHER ==
[~2019-08-08] VITALS: Ht 144.7 cm; Wt 47.6 kg
[2019-08-08 02:09] LABS: BASO # 0.1 10*3/uL (0.0-0.1); BASO % 0.4 % (0.0-1.0); EOS # 0.1 10*3/uL (0.0-0.4); EOS % 0.8 % (1.0-4.0); HEMATOCRIT 37.2 % (37.0-47.0); HEMOGLOBIN 12.9 g/dl (12.0-16.0); LYMPH # 2.1 10*3/uL (1.3-4.4); LYMPH % 15.8 % (27.0-41.0); MEAN CELL VOLUME 90.7 fl (81.0-99.0); MEAN CORPUSCULAR HGB 31.5 pg (27.0-31.0); MEAN CORPUSCULAR HGB CONC 34.7 g/dl (33.0-37.0); MEAN PLATELET VOLUME 9.8 fl (9.6-12.3); MONO % 7.3 % (3.0-9.0); NEUT # 9.9 10*3/uL (2.3-7.9); NEUT % 74.9 % (47.0-73.0); PLATELET COUNT AUTOMATED 234 10*3/uL (130-400); RED CELL DISTRI WIDTH 12.9 % (0-14.5); WHITE BLOOD COUNT 13.2 10*3/uL (4.8-10.8)
[2019-08-08 02:22] LABS: BILIRUBIN NEGATIVE (NEGATIVE); BLOOD 3+ (NEGATIVE); CLARITY CLEAR (CLEAR); COLOR YELLOW (YELLOW); GLUCOSE NEGATIVE (NEGATIVE); KETONE TRACE (NEGATIVE); LEUKO ESTERASE NEGATIVE (NEGATIVE); NITRITE NEGATIVE (NEGATIVE); SPECIFIC GRAVITY 1.015 (1.005-1.030); UROBILINOGEN 0.2 E.U./dl (0.2-1.0)
[2019-08-08 02:29] LABS: BACTERIA 1+; RBC 16-20 rbc/hpf (0-2); WBC 0-2 wbc/hpf (0-5)
== END 2019-08-08 04:40 | disposition home or self-care (01) ==
LOC: ED 01:02
PROVIDERS: Emergency Medicine
DX: O46.92 Antepartum hemorrhage, unspecified, second trimester (principal); Z3A.17 17 weeks gestation of pregnancy; Z88.8 Allergy status to other drugs, medicaments and biological substances

== ENCOUNTER 2020-07-22 23:14 | Emergency (ER) | payer OTHER ==
[~2020-07-22] VITALS: Ht 144.7 cm; Wt 43.5 kg
[2020-07-23 00:03] LABS: BILIRUBIN NEGATIVE; BLOOD NEGATIVE (NEGATIVE); CLARITY CLEAR (CLEAR); COLOR YELLOW (YELLOW); GLUCOSE NEGATIVE; KETONE NEGATIVE; LEUKO ESTERASE NEGATIVE (NEGATIVE); NITRITE NEGATIVE (NEGATIVE); PH 7.5 (4.5-8.0); SPECIFIC GRAVITY 1.015 (1.001-1.030)
[2020-07-23 00:04] LABS: BACTERIA TRACE; EPITHELIAL CELLS 16-20; RBC 0-2 rbc/hpf (0-2); WBC 0-2 wbc/hpf (0-5)
[2020-07-23] MEDS ORDERED: GYNE-LOTRIMIN-745 GM VG (00:44)
[2020-07-23] MEDS ORDERED: CEPHALEXIN500 M1 PO (00:44)
== END 2020-07-23 01:08 | disposition home or self-care (01) ==
LOC: ED 23:14
PROVIDERS: Emergency Medicine
DX: B37.9 Candidiasis, unspecified (principal); R30.0 Dysuria; Z88.8 Allergy status to other drugs, medicaments and biological substances

== ENCOUNTER 2020-10-17 15:38 | Emergency (ER) | payer OTHER ==
[~2020-10-17] VITALS: Ht 144.7 cm; Wt 54.4 kg
[~2020-10-17 15:38] MED LIST changes: +GYNE-LOTRIMIN-745 GM VG
[2020-10-17] MEDS ORDERED: AMOXICILLIN500 M2 PO ×2 (16:58)
== END 2020-10-17 17:05 | disposition home or self-care (01) ==
LOC: ED 15:38
DX: J03.90 Acute tonsillitis, unspecified (principal); F17.200 Nicotine dependence, unspecified, uncomplicated; Z88.8 Allergy status to other drugs, medicaments and biological substances

== ENCOUNTER 2020-10-25 05:03 | Emergency (ER) | payer OTHER ==
[~2020-10-25] VITALS: Ht 144.7 cm; Wt 45.4 kg
== END 2020-10-25 05:44 | disposition home or self-care (01) ==
LOC: ED 05:03
DX: R52 Pain, unspecified (principal); F41.9 Anxiety disorder, unspecified; Z88.8 Allergy status to other drugs, medicaments and biological substances

== ENCOUNTER 2020-11-22 21:45 | Emergency (ER) | payer OTHER ==
[~2020-11-22] VITALS: Wt 45.4 kg
[2020-11-22] MEDS ORDERED: IBUPROFEN600 MG PO (22:04)
[2020-11-22] MEDS ORDERED: DOXYCYCLINE100 M3 PO (22:04)
== END 2020-11-22 22:41 | disposition home or self-care (01) ==
LOC: ED 21:45
DX: L02.416 Cutaneous abscess of left lower limb (principal); Z88.8 Allergy status to other drugs, medicaments and biological substances

== ENCOUNTER 2021-01-16 15:58 | Emergency (ER) | payer OTHER ==
[~2021-01-16] VITALS: Wt 43.1 kg
[~2021-01-16 15:58] MED LIST changes: +DOXYCYCLINE100 M3 PO; +IBUPROFEN600 MG PO
[2021-01-16 16:25] LABS: BILIRUBIN Negative (Negative); BLOOD Negative (Negative); CLARITY Cloudy (Clear); COLOR Yellow (Yellow); GLUCOSE Negative (Negative); KETONE Trace (Negative); LEUKO ESTERASE Negative (Negative); NITRITE Negative (Negative); SPECIFIC GRAVITY 1.025 (1.001-1.030)
[2021-01-16 16:38] LABS: BACTERIA 3+; EPITHELIAL CELLS 21-30
== END 2021-01-16 17:29 | disposition left against medical advice (07) ==
LOC: ED 15:58
PROVIDERS: Nurse Practitioner Family
DX: N89.8 Other specified noninflammatory disorders of vagina (principal); R10.31 Right lower quadrant pain; Z88.8 Allergy status to other drugs, medicaments and biological substances; Z79.2 Long term (current) use of antibiotics; Z79.899 Other long term (current) drug therapy

== ENCOUNTER 2021-09-13 12:29 | Emergency (ER) | payer OTHER ==
[~2021-09-13] VITALS: Wt 50.3 kg
[2021-09-13 13:38] LABS: BILIRUBIN Negative (Negative); BLOOD Negative (Negative); CLARITY Clear (Clear); COLOR Yellow (Yellow); GLUCOSE Negative (Negative); KETONE 3+ (Negative); LEUKO ESTERASE 2+ (Negative); NITRITE Negative (Negative)
[2021-09-13 13:39] LABS: HEMATOCRIT 33.1 % (37.0-47.0); MEAN CELL VOLUME 84.2 fl (81.0-99.0); MEAN CORPUSCULAR HGB 27.7 pg (27.0-31.0); MEAN CORPUSCULAR HGB CONC 32.9 g/dl (33.0-37.0); MEAN PLATELET VOLUME 9.9 fl (9.6-12.3); PLATELET COUNT AUTOMATED 284 10*3/uL (130-400); RED BLOOD COUNT 3.93 10*6/uL (4.10-5.10); RED CELL DISTRI WIDTH 12.8 % (0-14.5); WHITE BLOOD COUNT 23.7 10*3/uL (4.8-10.8)
[2021-09-13 13:55] LABS: ALBUMIN 2.9 gm/dl (3.1-4.5); ALKALINE PHOSPHATASE 118 U/L (45-117); BUN 4 mg/dl (7-24); CHLORIDE 101 mmol/L (98-107); POTASSIUM 3.7 mmol/L (3.5-5.1); SGOT/AST 29 IU/L (3-35); SGPT/ALT 18 U/L (12-78); SODIUM 134 mmol/L (136-145); TOTAL PROTEIN 7.6 gm/dL (6.4-8.2)
[2021-09-13 14:05] LABS: PLATELET SUFFICIENCY NORMAL (NORMAL); TOTAL CELLS COUNTED 100 #CELLS
[2021-09-13 14:08] LABS: RBC 0-2 rbc/hpf (0-2); WBC 21-30 wbc/hpf (0-5)
[2021-09-13 14:09] LABS: BACTERIA 3+
[2021-09-13] MEDS ORDERED: AMOXICILLIN500 M3 PO (16:24)
[2021-09-13] MEDS ORDERED: HYDROCODONE-AC1 EAC1 PO (16:50)
== END 2021-09-13 16:50 | disposition home or self-care (01) ==
LOC: ED 12:29
PROVIDERS: Internal Medicine
DX: N39.0 Urinary tract infection, site not specified (principal); Z88.8 Allergy status to other drugs, medicaments and biological substances

== ENCOUNTER 2022-07-17 04:02 | Emergency (ER) | payer OTHER ==
[~2022-07-17 04:02] MED LIST changes: +AMOXICILLIN500 M3 PO; +HYDROCODONE-AC1 EAC1 PO
[2022-07-17 04:24] LABS: BASO % 0.4 % (0.0-1.0); EOS % 0.6 % (1.0-4.0); HEMATOCRIT 37.9 % (37.0-47.0); LYMPH # 0.5 10*3/uL (1.3-4.4); LYMPH % 6.8 % (27.0-41.0); MEAN CELL VOLUME 87.3 fl (81.0-99.0); MEAN CORPUSCULAR HGB 30.6 pg (27.0-31.0); MEAN CORPUSCULAR HGB CONC 35.1 g/dl (33.0-37.0); MEAN PLATELET VOLUME 9.9 fl (9.6-12.3); MONO # 0.6 10*3/uL (0.1-1.0); MONO % 8.1 % (3.0-9.0); NEUT # 5.8 10*3/uL (2.3-7.9); NEUT % 83.8 % (47.0-73.0); PLATELET COUNT AUTOMATED 236 10*3/uL (130-400); RED BLOOD COUNT 4.34 10*6/uL (4.10-5.10); RED CELL DISTRI WIDTH 12.2 % (0-14.5); WHITE BLOOD COUNT 6.9 10*3/uL (4.8-10.8)
[2022-07-17 04:41] LABS: ALKALINE PHOSPHATASE 91 U/L (45-117); BUN 10 mg/dl (7-24); CHLORIDE 105 mmol/L (98-107); POTASSIUM 3.2 mmol/L (3.5-5.1); SGOT/AST 34 IU/L (3-35); SGPT/ALT 35 U/L (12-78); SODIUM 138 mmol/L (136-145); TOTAL PROTEIN 7.9 gm/dL (6.4-8.2)
[2022-07-17] MEDS ORDERED: PAXLOVID 300-11 EAC1 PO (05:59)
== END 2022-07-17 06:12 | disposition left against medical advice (07) ==
LOC: ED 04:02
PROVIDERS: Emergency Medicine
DX: U07.1 COVID-19 (principal); Z88.8 Allergy status to other drugs, medicaments and biological substances

== ENCOUNTER 2022-08-13 16:57 | Emergency (ER) | payer OTHER ==
[~2022-08-13 16:57] MED LIST changes: +PAXLOVID 300-11 EAC1 PO
[2022-08-13 17:49] LABS: BASO % 0.3 % (0.0-1.0); EOS # 0.1 10*3/uL (0.0-0.4); EOS % 0.9 % (1.0-4.0); HEMATOCRIT 37.6 % (37.0-47.0); LYMPH # 1.7 10*3/uL (1.3-4.4); LYMPH % 25.5 % (27.0-41.0); MEAN CELL VOLUME 86.6 fl (81.0-99.0); MEAN CORPUSCULAR HGB 30.4 pg (27.0-31.0); MEAN CORPUSCULAR HGB CONC 35.1 g/dl (33.0-37.0); MEAN PLATELET VOLUME 9.6 fl (9.6-12.3); MONO # 0.7 10*3/uL (0.1-1.0); MONO % 10.7 % (3.0-9.0); NEUT % 62.3 % (47.0-73.0); PLATELET COUNT AUTOMATED 256 10*3/uL (130-400); RED BLOOD COUNT 4.34 10*6/uL (4.10-5.10); RED CELL DISTRI WIDTH 12.3 % (0-14.5); WHITE BLOOD COUNT 6.5 10*3/uL (4.8-10.8)
[2022-08-13 18:08] LABS: ALKALINE PHOSPHATASE 70 U/L (45-117); BUN 11 mg/dl (7-24); CHLORIDE 110 mmol/L (98-107); CREATININE 0.57 mg/dL (0.55-1.02); POTASSIUM 3.8 mmol/L (3.5-5.1); SGOT/AST 12 IU/L (3-35); SGPT/ALT 25 U/L (12-78); SODIUM 140 mmol/L (136-145); TOTAL PROTEIN 7.7 gm/dL (6.4-8.2)
[2022-08-13 18:11] LABS: ACT PARTIAL THROMBO TIME 26.5 SECONDS (20.0-32.1)
== END 2022-08-13 20:09 | disposition home or self-care (01) ==
LOC: ED 16:57
PROVIDERS: Family Medicine
DX: R55 Syncope and collapse (principal); R00.2 Palpitations; Z88.1 Allergy status to other antibiotic agents

== ENCOUNTER 2023-01-14 10:42 | Emergency (ER) | payer OTHER ==
[~2023-01-14] VITALS: Ht 165.1 cm; Wt 45.4 kg
[2023-01-14 11:32] LABS: BILIRUBIN Negative (Negative); BLOOD Negative (Negative); CLARITY Clear (Clear); COLOR Yellow (Yellow); GLUCOSE Negative (Negative); KETONE Negative (Negative); LEUKO ESTERASE Trace (Negative); NITRITE Negative (Negative); SPECIFIC GRAVITY 1.025 (1.001-1.030)
[2023-01-14 11:49] LABS: MUCOUS 1+
[2023-01-14 11:50] LABS: BACTERIA 2+
[2023-01-14 11:52] LABS: BASO % 0.4 % (0.0-1.0); EOS # 0.1 10*3/uL (0.0-0.4); HEMATOCRIT 39.2 % (37.0-47.0); LYMPH # 1.7 10*3/uL (1.3-4.4); LYMPH % 18.5 % (27.0-41.0); MEAN CELL VOLUME 87.5 fl (81.0-99.0); MEAN CORPUSCULAR HGB 29.9 pg (27.0-31.0); MEAN CORPUSCULAR HGB CONC 34.2 g/dl (33.0-37.0); MEAN PLATELET VOLUME 9.2 fl (9.6-12.3); MONO # 0.7 10*3/uL (0.1-1.0); MONO % 7.4 % (3.0-9.0); NEUT # 6.7 10*3/uL (2.3-7.9); NEUT % 72.2 % (47.0-73.0); PLATELET COUNT AUTOMATED 332 10*3/uL (130-400); RED BLOOD COUNT 4.48 10*6/uL (4.10-5.10); RED CELL DISTRI WIDTH 12.5 % (0-14.5); WHITE BLOOD COUNT 9.2 10*3/uL (4.8-10.8)
[2023-01-14 12:12] LABS: ALKALINE PHOSPHATASE 84 U/L (46-116); BUN 6 mg/dl (9-23); CHLORIDE 106 mmol/L (98-107); POTASSIUM 3.7 mmol/L (3.4-5.1); SGPT/ALT 34 U/L (10-49); TOTAL PROTEIN 7.1 gm/dL (6.0-8.0)
[2023-01-14] MEDS ORDERED: CEPHALEXIN500 M1 PO (12:27)
== END 2023-01-14 12:49 | disposition home or self-care (01) ==
LOC: ED 10:42
PROVIDERS: Physician Assistant
DX: O23.41 Unspecified infection of urinary tract in pregnancy, first trimester (principal); N39.0 Urinary tract infection, site not specified; Z88.8 Allergy status to other drugs, medicaments and biological substances; Z3A.01 Less than 8 weeks gestation of pregnancy

== ENCOUNTER 2023-02-02 00:28 | Emergency (ER) | payer OTHER ==
[~2023-02-02] VITALS: Ht 144.7 cm; Wt 45.8 kg
[2023-02-02 01:35] LABS: BASO % 0.3 % (0.0-1.0); EOS # 0.1 10*3/uL (0.0-0.4); EOS % 0.5 % (1.0-4.0); HEMATOCRIT 37.6 % (37.0-47.0); LYMPH # 1.7 10*3/uL (1.3-4.4); LYMPH % 15.8 % (27.0-41.0); MEAN CELL VOLUME 86.2 fl (81.0-99.0); MEAN CORPUSCULAR HGB 30.5 pg (27.0-31.0); MEAN CORPUSCULAR HGB CONC 35.4 g/dl (33.0-37.0); MEAN PLATELET VOLUME 9.9 fl (9.6-12.3); MONO # 0.8 10*3/uL (0.1-1.0); MONO % 7.4 % (3.0-9.0); NEUT # 8.3 10*3/uL (2.3-7.9); NEUT % 75.6 % (47.0-73.0); PLATELET COUNT AUTOMATED 259 10*3/uL (130-400); RED BLOOD COUNT 4.36 10*6/uL (4.10-5.10); RED CELL DISTRI WIDTH 12.6 % (0-14.5)
[2023-02-02 01:51] LABS: INTERNATIONAL NORM RATIO 0.9 (2.0-3.5)
[2023-02-02 01:53] LABS: ALKALINE PHOSPHATASE 53 U/L (46-116); BUN 6 mg/dl (9-23); CHLORIDE 107 mmol/L (98-107); POTASSIUM 3.4 mmol/L (3.4-5.1); SGPT/ALT 13 U/L (10-49)
== END 2023-02-02 04:43 | disposition home or self-care (01) ==
LOC: ED 00:28
PROVIDERS: Emergency Medicine
DX: R00.2 Palpitations (principal); Z88.8 Allergy status to other drugs, medicaments and biological substances

== ENCOUNTER → 2023-02-14 | Outpatient (CLI) | payer OTHER | END | disposition home or self-care (01) | LOC: CARD 02-13 10:00 | PROVIDERS: ATTEND Internal Medicine Cardiovascular Disease | DX: R00.0 Tachycardia, unspecified (principal) ==

== ENCOUNTER → 2023-03-05 | Outpatient (CLI) | payer OTHER | END | disposition home or self-care (01) | LOC: CARD 01:32 | PROVIDERS: ATTEND Internal Medicine Cardiovascular Disease | DX: I34.0 Nonrheumatic mitral (valve) insufficiency (principal); I49.9 Cardiac arrhythmia, unspecified ==

== ENCOUNTER 2023-05-09 03:50 | Emergency (ER) | payer OTHER ==
[~2023-05-09] VITALS: Ht 144.7 cm; Wt 49.9 kg
[2023-05-09 04:24] LABS: BASO % 0.4 % (0.0-1.0); EOS # 0.1 10*3/uL (0.0-0.4); EOS % 1.2 % (1.0-4.0); HEMATOCRIT 36.7 % (37.0-47.0); LYMPH # 2.1 10*3/uL (1.3-4.4); MEAN CORPUSCULAR HGB 30.5 pg (27.0-31.0); MEAN CORPUSCULAR HGB CONC 34.6 g/dl (33.0-37.0); MEAN PLATELET VOLUME 9.9 fl (9.6-12.3); MONO # 0.8 10*3/uL (0.1-1.0); MONO % 7.6 % (3.0-9.0); NEUT # 7.4 10*3/uL (2.3-7.9); PLATELET COUNT AUTOMATED 238 10*3/uL (130-400); RED BLOOD COUNT 4.17 10*6/uL (4.10-5.10); WHITE BLOOD COUNT 10.5 10*3/uL (4.8-10.8)
[2023-05-09 04:55] LABS: BILIRUBIN Negative (Negative); BLOOD 1+ (Negative); CLARITY Clear (Clear); COLOR Yellow (Yellow); GLUCOSE Negative (Negative); KETONE Negative (Negative); LEUKO ESTERASE Negative (Negative); NITRITE Negative (Negative); UROBILINOGEN 0.2 E.U./dl (0.0-1.0)
[2023-05-09 05:11] LABS: BACTERIA 1+; WBC 0-2 wbc/hpf (0-5)
== END 2023-05-09 09:48 | disposition home or self-care (01) ==
LOC: ED 03:50
PROVIDERS: Emergency Medicine
DX: O46.92 Antepartum hemorrhage, unspecified, second trimester (principal); F41.9 Anxiety disorder, unspecified; E87.8 Other disorders of electrolyte and fluid balance, not elsewhere classified; E87.6 Hypokalemia; Z3A.21 21 weeks gestation of pregnancy; Z88.8 Allergy status to other drugs, medicaments and biological substances; Z79.899 Other long term (current) drug therapy

== ENCOUNTER 2023-06-25 05:22 | Emergency (ER) | payer OTHER ==
[~2023-06-25] VITALS: Ht 144.7 cm; Wt 51.3 kg
[2023-06-25] MEDS ORDERED: AMOXICILLIN500 M2 PO (05:43)
== END 2023-06-25 05:54 | disposition home or self-care (01) ==
LOC: ED 05:22
DX: K08.89 Other specified disorders of teeth and supporting structures (principal); F41.9 Anxiety disorder, unspecified; Z88.8 Allergy status to other drugs, medicaments and biological substances

== ENCOUNTER 2023-12-31 19:55 | Emergency (ER) | payer OTHER ==
[~2023-12-31] VITALS: Ht 157.4 cm; Wt 63.5 kg
[2023-12-31] MEDS ORDERED: SODIUM CHLORIDE 0.9% 1,000 ML IV ONE (21:30)
[2023-12-31 21:42] LABS: BASO % 0.3 % (0.0-1.0); EOS # 0.1 10*3/uL (0.0-0.4); EOS % 1.6 % (1.0-4.0); HEMATOCRIT 37.9 % (37.0-47.0); LYMPH # 1.8 10*3/uL (1.3-4.4); LYMPH % 26.5 % (27.0-41.0); MEAN CELL VOLUME 87.1 fl (81.0-99.0); MEAN CORPUSCULAR HGB CONC 33.2 g/dl (33.0-37.0); MEAN PLATELET VOLUME 9.8 fl (9.6-12.3); MONO # 0.6 10*3/uL (0.1-1.0); MONO % 9.3 % (3.0-9.0); NEUT # 4.2 10*3/uL (2.3-7.9); NEUT % 61.9 % (47.0-73.0); PLATELET COUNT AUTOMATED 294 10*3/uL (130-400); RED BLOOD COUNT 4.35 10*6/uL (4.10-5.10); WHITE BLOOD COUNT 6.9 10*3/uL (4.8-10.8)
[2023-12-31 21:45] LABS: BILIRUBIN Negative (Negative); BLOOD Negative (Negative); CLARITY Clear (Clear); COLOR Yellow (Yellow); GLUCOSE Negative (Negative); KETONE 2+ (Negative); LEUKO ESTERASE 1+ (Negative); NITRITE Negative (Negative); PH 6.5 (4.5-8.0)
[2023-12-31 21:52] LABS: BACTERIA 2+; WBC 16-20 wbc/hpf (0-5)
[2023-12-31 22:03] LABS: ALKALINE PHOSPHATASE 80 U/L (46-116); BUN 10 mg/dl (9-23); CHLORIDE 107 mmol/L (98-107); LIPASE 41 U/L (12-53); POTASSIUM 3.3 mmol/L (3.4-5.1); SGPT/ALT 17 U/L (5-49); TOTAL PROTEIN 7.8 gm/dL (6.0-8.0)
[2023-12-31] MEDS ORDERED: CEPHALEXIN500 M1 PO (22:12)
[2023-12-31] MEDS ORDERED: POTASSIUM CHLORIDE 20 MEQ TAB PO ONE (22:15)
== END 2023-12-31 22:33 | disposition home or self-care (01) ==
LOC: ED 19:55
PROVIDERS: Nurse Practitioner Family
DX: N39.0 Urinary tract infection, site not specified (principal); E87.6 Hypokalemia; F41.9 Anxiety disorder, unspecified; E78.00 Pure hypercholesterolemia, unspecified; Z88.2 Allergy status to sulfonamides; Z88.8 Allergy status to other drugs, medicaments and biological substances

== ENCOUNTER 2024-05-31 03:58 | Emergency (ER) | payer OTHER ==
[~2024-05-31] VITALS: Ht 144.7 cm; Wt 44.5 kg
[2024-05-31] MEDS ORDERED: AMOX-CLAV 875-1 EACH PO (04:48)
[2024-05-31] MEDS ORDERED: Amoxicillin/Clavulanate Pota 875 MG TAB PO ONE (04:50)
== END 2024-05-31 04:54 | disposition home or self-care (01) ==
LOC: ED 03:58
DX: J03.90 Acute tonsillitis, unspecified (principal); H66.91 Otitis media, unspecified, right ear; F41.9 Anxiety disorder, unspecified; Z88.2 Allergy status to sulfonamides; Z88.8 Allergy status to other drugs, medicaments and biological substances

== ENCOUNTER 2024-08-19 01:12 | Emergency (ER) | payer OTHER ==
[~2024-08-19] VITALS: Ht 144.7 cm; Wt 46.7 kg
[~2024-08-19 01:12] MED LIST changes: +AMOX-CLAV 875-1 EACH PO
[2024-08-19] MEDS ORDERED: Ondansetron Hydrochloride 4 MG/2 ML VIAL IV ONE (02:25)
[2024-08-19] MEDS ORDERED: SODIUM CHLORIDE 0.9% 1,000 ML IV ONE (02:25)
[2024-08-19] MEDS ORDERED: Meclizine Hydrochloride 25 MG TAB PO ONE (02:25)
[2024-08-19 02:43] LABS: BASO % 0.4 % (0.0-1.0); EOS # 0.2 10*3/uL (0.0-0.4); HEMATOCRIT 42.8 % (37.0-47.0); LYMPH # 1.9 10*3/uL (1.3-4.4); LYMPH % 21.1 % (27.0-41.0); MEAN CELL VOLUME 89.9 fl (81.0-99.0); MEAN CORPUSCULAR HGB CONC 33.4 g/dl (33.0-37.0); MEAN PLATELET VOLUME 9.5 fl (9.6-12.3); MONO # 0.6 10*3/uL (0.1-1.0); NEUT # 6.4 10*3/uL (2.3-7.9); NEUT % 70.1 % (47.0-73.0); PLATELET COUNT AUTOMATED 285 10*3/uL (130-400); RED BLOOD COUNT 4.76 10*6/uL (4.10-5.10); WHITE BLOOD COUNT 9.2 10*3/uL (4.8-10.8)
[2024-08-19 02:55] LABS: BILIRUBIN Negative (Negative); BLOOD 3+ (Negative); CLARITY Clear (Clear); COLOR Yellow (Yellow); GLUCOSE Negative (Negative); KETONE Negative (Negative); LEUKO ESTERASE Negative (Negative); NITRITE Negative (Negative); PH 6.5 (4.5-8.0); SPECIFIC GRAVITY <= 1.005 (1.001-1.030); UROBILINOGEN 0.2 E.U./dl (0.0-1.0)
[2024-08-19 03:00] LABS: RBC 31-40 rbc/hpf (0-2)
[2024-08-19 03:01] LABS: BUN 7 mg/dl (9-23); CHLORIDE 107 mmol/L (98-107); POTASSIUM 3.7 mmol/L (3.4-5.1)
[2024-08-19] MEDS ORDERED: Meclizine25 MG PO (04:23)
== END 2024-08-19 04:29 | disposition home or self-care (01) ==
LOC: ED 01:12
PROVIDERS: Emergency Medicine
DX: R42 Dizziness and giddiness (principal); E87.6 Hypokalemia; F41.9 Anxiety disorder, unspecified; E78.00 Pure hypercholesterolemia, unspecified; Z87.442 Personal history of urinary calculi; Z88.2 Allergy status to sulfonamides; Z88.8 Allergy status to other drugs, medicaments and biological substances; Z79.899 Other long term (current) drug therapy